=== PATIENT | male | born 1980 | race Caucasian/White ===

== ENCOUNTER → 2025-03-20 16:21 | Outpatient (REF) | payer OTHER, SELFPAY | LOC: RAD 16:21 | PROVIDERS: ATTENDING PHYSICIAN Family Medicine | DX: G89.29 Other chronic pain (principal); M25.511 Pain in right shoulder | CPT/HCPCS: 73030 ==

== ENCOUNTER 2025-04-09 19:44 | Emergency (ER) | payer OTHER, SELFPAY ==
[2025-04-09 19:47] VITALS: BP 123/86
[2025-04-09 20:28] VITALS: BP 133/77; BMI 29.8
--- NOTE | 2025-04-10 01:48 | ED.GENMED ---
History of Present Illness
General
Chief Complaint: Musculo-Skeletal Complaint
Source: patient
Exam Limitations: none
Time Seen by Provider: 04/09/25 23:05
Nursing documentation reviewed up to this point in time: agreed with
History of Present Illness
History of Present Illness:
44-year-old male presenting to the emergency department today with concerns of left-sided knee discomfort after an awkward movement that occurred 5 days ago. Ongoing discomfort since. Some bruising into the cortez. Has been able to walk. Denies
any numbness or additional concerns. No additional injuries.
Past History
Past History
ED Past Medical History: None
Social History
Personal:
Living: with family
Employment: Employed
Review of Systems
Review of Systems
Allergies reviewed?: Yes
All Other Systems: ROS reviewed and negative except as documented in HPI and ROS
Phy Exam
Physical Exam
Physical Exam:
GENERAL: Alert , in no apparent distress
EYE: pupils equal and reactive
NECK: Supple, no significant adenopathy.
ENT: o/p clr, mmm.
CARDIAC: Regular rate and rhythm .
LUNGS: Clear breath sounds bilaterally, no acute respiratory distress, no wheezes/rales/rhonchi
ABDOMEN: Soft, without focal tenderness, no r/g, no cvat
NEUROLOGICAL: Alert and oriented, no focal neuro deficits
SKIN: Warm and dry, skin intact.
MUSCULOSKELETAL: Some slight ecchymosis to the left side anterior cortez good range of motion no joint laxity to the left knee no edema, well perfused.
PSYCH: Normal and appropriate interaction.
Course
Orders/Labs/Results
Orders:
Orders
04/10/25 00:00
CR Knee - Left 4 Or More View* Urgent
Reason For Exam: pain to knee,
CR Leg Tibia/fibula Left 2 Vw Urgent
Reason For Exam: left cortez pain bruising
04/10/25 01:50
Conrado Wrap Left-Treatment ONCE
Vital Signs
Initial and Last Documented VS:
Initial Vital Signs
Temp Pulse Resp BP Pulse Ox
97.9 F 90 20 123/86 97
04/09/25 19:47 04/09/25 19:47 04/09/25 19:47 04/09/25 19:47 04/09/25 19:47
Last Documented Vital Signs
Temp Pulse Resp BP Pulse Ox
97.9 F 76 18 133/77 100
04/09/25 19:47 04/09/25 20:28 04/09/25 20:28 04/09/25 20:28 04/09/25 20:28
MDM/Problems Addressed
MDM/Problems Addressed:
44-year-old male presenting to the emergency department today with concerns of left knee and cortez discomfort over the past 5 days or so. This occurred after movement 5 days ago. Here slight bruising to the left cortez but otherwise good range of
motion and strength of the left knee no focal tenderness. X-rays without acute findings. Patient with most likely soft tissue injury. Plan for symptomatic treatment otherwise advised for outpatient follow-up for ongoing symptoms. Return
precautions given.
*Critical Care Note
Total Time (30-74mins, 75-104mins- exclusive of procedures): Not Applicable
ED Attending Note
-
Portions of this chart may have been created with voice recognition software.� Occasional wrong word or��sound alike� substitutions may have occurred due to the inherent limitations of voice recognition software.
Discharge Plan
Departure
Patient Disposition: Home (Routine Discharge)
Date of Disposition: 04/10/25
Time of Disposition: 01:48
Patient with high blood pressure during this ER visit?: No
Condition: Good
Covid-19: Not Applicable
Discharge Problem:
Injury of left leg
Instructions: Muscle and Bone Pain (DC)
Prescriptions:
No Action
sulfamethoxazole-trimethoprim 1 TABLET tablet
1 tab PO BID Qty: 14 0RF
hydrocodone-acetaminophen 1 TABLET tablet
1 tab PO Q4HPRN PRN (Reason: moderate pain) Qty: 10 0RF
oxycodone-acetaminophen 1 EACH tablet
1 ea PO Q4HPRN PRN (Reason: Moderate pain) Qty: 10 0RF
Referrals:
Leonela Lujan I., DO [Active, Orthopedics]
NONE,* [Family Provider, Internal Medicine]
Activity Restrictions/Additional Instructions:
You came to the emergency department today with concerns of discomfort to the left knee and left cortez region. Here your x-rays were normal. Please follow closely with orthopedics. Return for any worsening, new or concerning symptoms.
Interventions
Interventions:
*Risk Screen - Suicide Last Done: 04/09/25 19:47
*General Assessment Last Done: 04/09/25 19:47
*Neglect/Abuse Screening Last Done: 04/09/25 19:47
*ED- Fall Risk Assessment Last Done: 04/09/25 20:28
*ED COVID-19 Vaccine History Last Done: 04/09/25 20:28
ED-Musculoskeletal Assessment Last Done: 04/09/25 20:28
Discharge Date and Time
Print Language: ARABIC
[2025-04-10 02:06] VITALS: BP 152/99
== END 2025-04-10 02:07 | disposition home or self-care (01) ==
LOC: EMR 19:44
PROVIDERS: EMERGENCY PHYSICIAN Student in an Organized Health Care Education/Training Program
DX: S80.02XA Contusion of left knee, initial encounter (principal); X58.XXXA Exposure to other specified factors, initial encounter
CPT/HCPCS: 99283; 73564; 73590